=== PATIENT | male | born 1985 | race Caucasian/White ===

== ENCOUNTER 2016-07-24 16:58 | Emergency (ER) ==
[2016-07-24] MEDS ORDERED: CLINDAMYCIN IM ONE (18:15)
[2016-07-24] MEDS ORDERED: ULTRAM PO ONE (18:16)
--- NOTE | 2016-07-24 18:21 | PROVIDER DOCUMENTATION ---
HPI-General Adult - General Chief Complaint: Sores/Lesions Stated Complaint: (R) FOOT 2ND TOE INFECTION Time Seen by Provider: 07/24/16 17:50 Source: patient Allergies/Adverse Reactions: Patient Allergies Allergy/AdvReac Type Severity Reaction Status Date / Time bupropion HCl * AdvReac Unknown Verified 07/16/16 10:29 [From Wellbutrin] Home Medications: Home Medication List Medication Instructions Recorded Confirmed Last Taken Type Insulin Humulin 70/30 [Humulin 0 unit SUBQ BID 07/05/15 07/16/16 11/28/15 History 70/30] LISINOpril [Prinivil] 10 mg PO DAILY 11/20/15 07/16/16 07/16/16 04:30 History Venlafaxine HCl [Effexor Xr] 150 mg PO DAILY 11/20/15 07/16/16 07/16/16 04:30 History Ondansetron Odt [Zofran 4 mg Odt] 4 mg PO Q8H PRN PRN #10 tablet 07/16/16 Unknown Rx Carvedilol [Coreg] 25 mg PO DAILY 07/24/16 07/24/16 Unknown History Clindamycin [Cleocin] 150 mg PO Q6HR #30 capsule 07/24/16 Unknown Rx Metformin [Glucophage] 1,000 mg PO BID 07/24/16 07/24/16 Unknown History Tramadol [Ultram] 50 mg PO Q8HR #12 tablet 07/24/16 Unknown Rx - History of Present Illness -Gen Adult Nature of Presenting Problems: Pt. is 31 yom that presents with c/o infection to 2nd digit on his right foot. Pt. reports he fell on a retaining wall and injured himself several days ago. Pt. denies any other injury and states he has been putting neosporin on it. Location of Pain/Injury: reports: feet (Right). denies: head, face, mouth, neck , chest, upper extremity, hand(s), abdomen, back, pelvis, genitalia, lower extremity, upper body, lower body, generalized Pain Radiation: reports: no radiation Quality of Pain: reports: aching. denies: burning, cramping, dull, fullness, indigestion, pressure, sharp, stabbing, tearing, throbbing, tightness Severity: reports: mild. denies: moderate, severe Onset/Duration: reports: abrupt, 3 days ago Timing: reports: still present. denies: improving, gone now, resolved prior to arrival, intermittent, constant, changing over time, getting worse Context/Activities at Onset: reports: none. denies: recent emotional stress, recent physical stress, recent trauma history, possible bad food, cold exposure , out of country travel Modifying Factors: improves with: nothing Associated Symptoms: reports: other (cellulitis to 2nd digit on right foot). denies: anxiety, arm pain, back/neck pain, chest pain, constipation, cough, diaphoresis, diarrhea, dizziness, EENT symptoms, fatigue, fever/chills, genitourinary problems, headaches, heartburn, joint pain, loss of appetite, malaise, muscle aches, sinus congestion/drainage, nausea, rash, seizure, shortness of breath, sensory/motor loss, pain with inspiration, swelling/mass in abdomen, syncope, vomiting, weakness, trouble walking Similar Symptoms Previously?: Yes Recently seen or treated by another doctor?: No Review of Systems - Adult - REVIEW OF SYSTEMS - ADULT Constitutional: reports: see HPI. denies: chills, fever, fatique Eyes: reports: see HPI. denies: discharge, blurred vision, double vision Ears, Nose, Mouth & Throat: reports: see HPI. denies: ear discharge, ear pain, hearing loss, sinus problem, nose pain, loose teeth, mouth/dental pain, throat pain, throat swelling Cardiovascular: reports: see HPI. denies: chest pain, irregular heart rate, orthopnea, palpitations, syncope Respiratory: reports: see HPI. denies: cough, dyspnea on exertion, pleurisy, shortness of breath, wheezing Gastrointestinal: reports: see HPI. denies: abdominal pain, hematemesis, diarrhea, nausea, vomiting Genitourinary: reports: see HPI. denies: dysuria, discharge, flank pain, hematuria, hesitency, urgency Musculoskeletal: reports: see HPI. denies: bone pain, joint pain, muscle aches , neck pain Integumentary: reports: see HPI, skin sores/ulcer (cellulitis to 2nd digit on right foot). denies: hives, itching, rash Neurological: reports: see HPI. denies: ataxia, headache/migraines, numbness, seizure, tremors Psychiatric: reports: see HPI. denies: anxiety, depression, emotional problems , insomnia, panic attacks, suicidal thoughts Past History - Adult - PAST MEDICAL HISTORY-ADULT Review of Records: reports: Old Records Reviewed, Nursing Assessment Review, Medications Reviewed, Social history reviewed & non-contributory. Major Childhood Illnesses: reports: denies history Cardiovascular: reports: denies history Respiratory: reports: denies history Gastrointestinal: reports: denies history Obstetrical/Gynecological: reports: denies history Genitourinary: reports: denies history Musculoskeletal: reports: other (toe amputations) Neurological: reports: denies history Endocrine/Immune: reports: Diabetes Other Conditions: reports: denies history - PRIOR SURGERIES/PROCEDURES Surgical/Procedure History: reports: cholecystectomy, tonsillectomy - IMMUNIZATION STATUS Childhood Immunizations: See Nurse Assessment Flu Vaccine: See Nurse Assessment - FAMILY HISTORY Family History: reviewed, not pertinent - SOCIAL HISTORY Smoking: quit greater than 1 year Physical Exam-General - PHYSICAL EXAM-ADULT Initial Vital Signs Reviewed: Yes - CONSTITUTIONAL General Appearance: alert, mild distress, thin. negative: obese, anxious, lethargic, slow to respond, obtunded, combative - EYES Eyes: PERRL/EOMI, pink conjunctivae. negative: conjuctival exudate, scleral icterus, subconjunctival hemorrhage - HEAD, EARS, NOSE, MOUTH & THROAT HENMT: normocephalic/atraumatic, moist mucous membranes. negative: angioedema, frontal tenderness, maxillary tenderness - NECK Neck: non-tender, full range of motion, supple, normal inspection. negative: lymphadenopathy, trachial deviation, thyromegaly - RESPIRATORY Respiratory: lungs clear, normal breath sounds. negative: crackles, rales, rhonchi, stridor, wheezing - CARDIOVASCULAR Cardiovascular: normal peripheral pulses, regular rate, rhythm, no edema, no JVD , no murmur. negative: extra beats, friction rub, irregularly irregular - CHEST (BREASTS) Chest/Breast: deferred - GASTROINTESTINAL (ABDOMEN) Abdominal Exam: normal bowel sounds, non tender, soft. negative: distended, guarding, rigid, rebound, tenderness, hernia, mass - GENITOURINARY Male Genitalia: deferred Rectal Exam: deferred Hemoccult Exam: deferred - LYMPHATIC Lymphatic: no adenopathy. negative: axilla node tender, cervical node tenderness - MUSCULOSKELETAL Back Exam: normal inspection, no CVA tenderness, no vertebral tenderness. negative: ecchymosis, scoliosis, swelling, vertebral tenderness Extremity: normal range of motion, non-tender, normal gait, normal inspection, erythema (cellulitis to 2nd digit on right foot), inflammation (cellulitis to 2nd digit on right foot), swelling (cellulitis to 2nd digit on right foot), tenderness (cellulitis to 2nd digit on right foot). negative: deformity, pulse deficit, pedal edema Peripheral Pulses: radial (R): 2+, radial (L): 2+ - SKIN Integumentary: normal color, normal turgor, warm/dry, abrasion(s) (Healing abrasion that is scabbed over on top of 2nd digit on right foot.), erythema ( cellulitis to 2nd digit on right foot), swelling (cellulitis to 2nd digit on right foot), tenderness (cellulitis to 2nd digit on right foot). negative: cyanosis, diaphoresis, ecchymosis, jaundice, mottled, pallor, petechiae, purpura , rash - NEUROLOGIC Neurologic: grossly normal, no motor/sensory deficits. negative: aphasia, facial droop, focal weakness, motor weakness, sensory deficit - PSYCHIATRIC Psych/Mental Status: normal mood/affect, normal thought content, normal thought process, oriented x 3. negative: anxious, paranoid, tearful Progress - PLAN OF CARE/RESULTS Progress/Plan/Lab Results: Discussed results and plan of care with patient. Patient agrees with plan and verbalizes understanding. Vital Signs Temp Pulse Resp BP Pulse Ox 07/24/16 17:12 98 F 106 H 18 127/82 100 bupropion HCl * [From Wellbutrin] Adverse Reaction (Verified 07/16/16 10:29) Unknown Insulin Humulin 70/30 [Humulin 70/30] 0 unit SUBQ BID 07/05/15 LISINOpril [Prinivil] 10 mg PO DAILY 11/20/15 Venlafaxine HCl [Effexor Xr] 150 mg PO DAILY 11/20/15 Ondansetron Odt [Zofran 4 mg Odt] 4 mg PO Q8H PRN PRN #10 tablet 07/16/16 Carvedilol [Coreg] 25 mg PO DAILY 07/24/16 Metformin [Glucophage] 1,000 mg PO BID 07/24/16 Orders Category Date Time Status Clindamycin Med 07/24/16 18:15 Discontinued 600 mg IM NOW ONE Tramadol [Ultram] Med 07/24/16 18:16 Discontinued 50 mg PO NOW ONE Departure - Departure Time of Disposition Order: 18:23 DIAGNOSIS: Toe pain, right, Abrasion Cellulitis Qualifiers: Site of cellulitis: extremity Site of cellulitis of extremity: toe Laterality: right Qualified Code(s): L03.031 - Cellulitis of right toe Disposition: HOME 01 Certified Medical Emergency: Emergent Condition: Stable Additional Instructions: Follow up with primary care physician Follow up with [facility] [facility] [employer] Take medications as directed Return to ED for any concerns or worsening of symptoms ED Follow Up Instructions: You have been treated by a care provider in the Emergency Department. These instructions are being provided to you so you can have an understanding of how to care for yourself upon discharge. Upon discharge from the Emergency Department, you are responsible for making arrangements for follow-up care by a physician of your choice. Take all prescribed medications as directed. Return to the Emergency Department immediately for any new or worsening symptoms. You may call the Physician Referral phone number at [phone] to obtain a list of Physicians who are taking new patients. Prescriptions: Clindamycin [Cleocin] 150 mg PO Q6HR #30 capsule Tramadol [Ultram] 50 mg PO Q8HR #12 tablet Referrals: None,PCP [Primary Care Provider] - Stanley Zhao DPM [STAFF PHYSICIAN] - Attestation - Physician/ BRYCE Attestation Patient care was provided by Advanced Practice Provider:: Yes Advanced Practice Provider:: Pieter Dennison Advanced Practice Provider documentation review:: The Mid-level provider documentation, treatment plan and medical decision making was reviewed by the physician who agrees with all treatment and medical decision making by the [facility].
[2016-07-24] MEDS ORDERED: TYLENOL WITH CODEINE #3 PO ONE (18:38)
[2016-07-24 19:04] VITALS: BP 110/061
== END 2016-07-24 19:04 | disposition home or self-care (01) ==
LOC: P.ED 16:58
DX: S90.414A Abrasion, right lesser toe(s), initial encounter (principal); L03.031 Cellulitis of right toe; M79.674 Pain in right toe(s); S99.921A Unspecified injury of right foot, initial encounter; E11.9 Type 2 diabetes mellitus without complications; Z87.891 Personal history of nicotine dependence; Z79.899 Other long term (current) drug therapy; Z79.4 Long term (current) use of insulin; W19.XXXA Unspecified fall, initial encounter
CPT/HCPCS: 96372; S0077